=== PATIENT | male | born 1935 | race Caucasian/White ===

== ENCOUNTER 2021-03-12 08:22 | Day surgery (SDC) | payer OTHER ==
[2021-03-12] MEDS ORDERED: Ringers Lactate 1,000 ML IV ONE (09:28)
[2021-03-12] MEDS: LIDOCAINE 1% W/EPI 1:100,000 MDV 20 ML VIAL ONE ×2 (10:17→11:34)
[2021-03-12] MEDS: BUPIVACAINE 0.5% PF 10 ML VIAL ONE ×2 (11:34→11:48)
--- NOTE | 2021-03-12 13:03 | P.BOP ---
Preoperative diagnosis: BCC left ear Postoperative diagnosis: same Primary procedure: WLE with FS, 31mm defect Secondary procedure: skin substitute application Estimated blood loss: 5ml Specimen: left ear, helix, 12 oclock Findings: BCC, negative margins Anesthesia: General Complications: None Implants: none Fluids & blood products: none Transferred to: Recovery Room Condition: Good
[2021-03-12 13:18] VITALS: BP 156/72; TEMP 96.8; O2SAT 98
--- NOTE | 2021-03-13 01:16 | OP ---
Surgeon: Claudia Mallory MD Preoperative Diagnosis: Basal cell carcinoma, left ear. Postoperative Diagnosis: Basal cell carcinoma, left ear. Procedure: Excision left ear basal cell carcinoma with frozen section, total defect 14 x 31 mm with application of skin substitute allograft. Anesthesia: Local anesthetic only. Indication For Procedure: The patient presented with a large exophytic previously biopsied basal essie l carcinoma of the left mid to upper helix. Due to the size, a frozen section was recommended, but u nable to be completed in the office due to insurance restrictions, therefore the patient was brought to the operating room for the procedure. We discussed options of sedation versus local anesthetic. The patient did not have a ride home and thus we elected for treatment under local anesthetic only. Description Of Procedure: The patient was brought to the operating room. He was positioned in a sup ine semi-reclined position with support of the head. The left ear was identified after appropriate t shannon-out. The left ear was cleaned with alcohol and injected with 5 mL of 1% lidocaine with epinephri ne and 2.5 mL of 0.5% bupivacaine. The ear was cleaned with Betadine and draped in a sterile fashion . The lesion was identified and a 5 mm margin was designed around the gross edge of the site. The B ovie electrocautery was used to incise through the skin and subcutaneous tissues circumferentially ar ound the lesion. A suture was placed at the superior most aspect indicating 12 o'clock and the speci men was elevated with the adjacent perichondrium from the underlying cartilage. The perichondrium wa s taken with the specimen due to concern for deep invasion, though there was no obvious invasion into the cartilage tissue itself. The specimen was sent to pathology for frozen section analysis. While awaiting the results, the surgical site was draped with moist gauze. After ensuring hemostasis with the cautery, the patient was monitored by the nursing staff for comfort and clinical stability. The specimen results were returned by the pathologist confirming basal cell carcinoma with negative deep and peripheral margins. Attention was returned to the surgical site. The defect included full-thic kness skin and perichondrium from the left upper and lateral aspects of the helix. The defect measur ed 31 x 14 mm. TheraSkin allograft was prepared and thawed in accordance with bilingual operator's instruc tions and applied to the wound. The graft was secured using 5-0 running chromic sutures for a dressi ng. A Xeroform was applied and molded to the ear and sutured in a through and through fashion using a 3-0 silk suture. The free edges of the dressing were trimmed. The surrounding skin was cleaned an d the procedure was concluded and the patient was transported back to [facility] for recovery and di [facility] home. Estimated Blood Loss: 5 mL or less. Iv Fluids: None. Disposition: The patient will be discharged home later today and follow up with Dr. Mallory's office in 10 days for removal of the bolster dressing. The patient is instructed to avoid getting the ear and surgical site wet. He may shower from the neck down and wash his hair with assistance in a sink. The patient has existing hydrocodone tablets as well as Tylenol and ibuprofen at home. Therefore, no additional discharge medications are indicated. The patient is instructed to call Dr. Mallory's o ffice for any significant uncontrolled pain or wound concerns. SHASHANK/DOMINGA Voice ID: [id number] Report ID: [id number]
== END 2021-03-12 13:31 | disposition home or self-care (01) ==
LOC: OR 08:22
PROVIDERS: ATTEND Otolaryngology
PROC: 0HR3XK3 Replacement of Left Ear Skin with Nonautologous Tissue Substitute, Full Thickness, External Approach (ICD-10-PCS; principal; 2021-03-12 10:45)
DX: C44.211 Basal cell carcinoma of skin of unspecified ear and external auricular canal (principal); Z20.822 Contact with and (suspected) exposure to COVID-19
CPT/HCPCS: 93005; 88331; 88332; 88305; 11643; 15275; U0002; J7120; Q4121